=== PATIENT | female | born 1980 | race Caucasian/White ===

== ENCOUNTER 2017-08-24 06:24 | Day surgery (SDC) | payer OTHER ==
[2017-08-24] MEDS ORDERED: LR 1,000 ML IV ×2 (06:30→10:45)
[2017-08-24] MEDS ORDERED: ROCURONIUM BROMIDE 50 MG/5 ML VIAL As Ordered ×2 (06:33→08:42)
[2017-08-24] MEDS ORDERED: MIDAZOLAM INJ 2 MG/2 ML VIAL (J2250) As Ordered (06:33)
[2017-08-24] MEDS ORDERED: fentaNYL 100 MCG/2 ML INJECTION (J3010) As Ordered (06:33)
[2017-08-24] MEDS ORDERED: PROPOFOL 200 MG/20 ML VIAL As Ordered (06:33)
[2017-08-24] MEDS ORDERED: LIDOCAINE 2% INJ 100 MG/5 ML SDV (FOR ANES.) As Ordered (06:34)
[2017-08-24 06:47] LABS: HEMATOCRIT 38.8 % (36.0-47.0); HEMOGLOBIN 12.9 g/dl (12.0-15.5)
[2017-08-24 07:04] LABS: CONTROL LINE HCG INT CTR LINE PRESENT; HCG, SERUM QUALITATIVE NEGATIVE (NEGATIVE)
[2017-08-24] MEDS ORDERED: ePHEDrine SULFATE 25 MG/5 ML(5MG/ML) SYRINGE As Ordered (08:20)
[2017-08-24] MEDS: VASOPRESSIN INJ 20 UNITS/ML VIAL As Ordered ×2 (08:59→10:12)
[2017-08-24] MEDS ORDERED: NEOSTIGMINE 10 MG/10 ML VIAL (J2710) As Ordered (09:21)
[2017-08-24] MEDS ORDERED: GLYCOPYRROLATE INJ 0.2 MG/ML 2 ML VIAL As Ordered (09:21)
[2017-08-24] MEDS ORDERED: KETOROLAC 60 MG/2 ML VIAL (J1885) As Ordered (09:39)
[2017-08-24] MEDS ORDERED: ONDANSETRON 4MG/2ML VIAL (J2405) As Ordered (09:42)
[2017-08-24] MEDS: BUPIVACAINE HCL 0.25% 30 ML VIAL As Ordered (10:10)
[2017-08-24] MEDS: SILVER NITRATE APPLICATOR As Ordered ×2 (10:13)
[2017-08-24] MEDS ORDERED: MEPERIDINE INJ 25 MG/ML VIAL (J2175) IV (10:45)
[2017-08-24] MEDS ORDERED: METOCLOPRAMIDE INJ 10MG/2ML VIAL (J2765) IV (10:45)
[2017-08-24] MEDS ORDERED: KETOROLAC 30 MG/ML VIAL (J1885) IV (10:45)
[2017-08-24] MEDS: fentaNYL 100 MCG/2 ML INJECTION (J3010) IV ×3 (10:50→11:14)
[2017-08-24] MEDS: ONDANSETRON 4MG/2ML VIAL (J2405) IV (10:50)
[2017-08-24] MEDS: PERCOCET 5MG/325MG TAB PO ×2 (10:52→11:18)
== END 2017-08-24 13:30 | disposition home or self-care (01) ==
LOC: M SDC 06:24
DX: D25.2 Subserosal leiomyoma of uterus (principal); N94.12 Deep dyspareunia; R10.2 Pelvic and perineal pain
CPT/HCPCS: 58545